=== PATIENT | male | born 1935 | race Caucasian/White ===

== ENCOUNTER 2024-12-20 14:36 | Inpatient (IN) | payer MEDICARE, BC, MEDICAID ==
[~2024-12-20] VITALS: Ht 180.3 cm; Wt 52.6 kg
[2024-12-20 15:25] LABS: BASOPHILS % (AUTO) 1.3 % (0.0-2.0); EOSINOPHILS % (AUTO) 0.4 % (1.0-6.0); HEMATOCRIT 40.5 % (41-53); HEMOGLOBIN 13.3 g/dL (13.5-17.5); LYMPHOCYTES # (AUTO) 2.2 K/uL (1.0-4.8); LYMPHOCYTES % (AUTO) 20.8 % (22.0-44.0); MEAN CORPUSCULAR HGB CONC 32.8 G/dL (31.0-37.0); MEAN CORPUSCULAR VOLUME 98 fL (80-100); MONOCYTES # (AUTO) 1.3 K/uL (0.1-1.0); MONOCYTES % (AUTO) 12.7 % (2.0-9.0); NEUTROPHILS # (AUTO) 6.8 K/uL (1.8-7.7); NEUTROPHILS % (AUTO) 64.8 % (40.0-70.0); PLATELET COUNT (AUTO) 379 K/uL (150-450); RED BLOOD CELL COUNT(AUTO) 4.14 MIL/uL (4.50-5.90); RED CELL DISTRIBUTION WIDTH 12.7 % (11.5-14.5); WHITE BLOOD COUNT (AUTO) 10.4 K/uL (4.5-11.0)
[2024-12-20 15:35] LABS: ANION GAP 12 mmol/L (8-16); CALCIUM, TOTAL 8.8 mg/dL (8.8-10.5); CARBON DIOXIDE 28 mmol/L (22-29); CHLORIDE 104 mmol/L (98-107); CREATININE 1.23 mg/dL (0.60-1.30); GLOMERULAR FILTR. RATE CALC 56 mL/min (>60); GLUCOSE,RANDOM 114 mg/dL (70-110); POTASSIUM 3.8 mmol/L (3.5-5.1); SODIUM SERUM 143 mmol/L (136-145); UREA NITROGEN, BLOOD 25 mg/dL (7-18)
[2024-12-20 15:43] LABS: COVID AG,FIA SOURCE NASAL SWAB
[2024-12-20 15:51] LABS: ALCOHOL, BLOOD (SERUM) < 3 mg/dL (0-10)
[2024-12-20 16:20] LABS: SARS-COV2 (COVID) ANTIGEN,FIA Negative (Negative)
[2024-12-20] MEDS ORDERED: ZOLPIDEM TARTRATE 10 MG TABLET PO PRN (20:00)
[2024-12-20 23:45] VITALS: BP 118/57; PULSE 75; RESP 19; TEMP 97.5; O2SAT 95
[2024-12-21] MEDS: SENNOSIDES 8.6 MG TABLET PO SCH (12:05)
[2024-12-21] MEDS: PROPRANOLOL HCL 10 MG TABLET PO SCH (12:05)
[2024-12-21] MEDS: DONEPEZIL HCL 10 MG TABLET PO SCH (12:06)
[2024-12-21] MEDS: TIOTROPIUM BROMIDE 18 MCG/INH HANDIHALER [5] IH SCH (12:06)
[2024-12-21] MEDS: FLUTICASONE FUROATE 100 MCG/INH INHALER [14] IH SCH (12:06)
[2024-12-21] MEDS: MEMANTINE HCL 10 MG TABLET PO SCH (12:06)
[2024-12-21] MEDS: GABAPENTIN 100 MG CAPSULE PO SCH (17:07)
[2024-12-21] MEDS: SERTRALINE HCL 50 MG TABLET PO SCH (17:24)
[2024-12-21 20:26] VITALS: BP 125/70; PULSE 66; RESP 18; TEMP 98; O2SAT 95
[2024-12-21] MEDS: TAMSULOSIN HCL 0.4 MG CAPSULE PO SCH (21:54)
[2024-12-21] MEDS: TraZODone HCL 100 MG TABLET PO SCH (21:54)
[2024-12-22] MEDS: RisperiDONE 0.5 MG TABLET PO SCH (08:42)
[2024-12-22 10:43] VITALS: BP 116/74; PULSE 98; RESP 18; TEMP 97.1; O2SAT 96
[2024-12-22 17:53] VITALS: BP 120/71; PULSE 98; RESP 18; TEMP 98; O2SAT 95
[2024-12-22 21:36] VITALS: BP 125/76; PULSE 86; RESP 18; TEMP 97.8; O2SAT 98
[2024-12-23 10:50] VITALS: BP 124/65; PULSE 73; RESP 18; TEMP 97.9; O2SAT 95
[2024-12-23 16:54] VITALS: BP 135/84; PULSE 106; RESP 18; O2SAT 98
[2024-12-23 21:02] VITALS: BP 116/69; PULSE 70; RESP 18; TEMP 97.6; O2SAT 93
[2024-12-24 09:52] VITALS: BP 150/88; PULSE 90; RESP 18; TEMP 96.8; O2SAT 98
[2024-12-24 16:34] VITALS: BP 114/60; PULSE 77
[2024-12-24 20:36] VITALS: BP 144/81; PULSE 72; RESP 17; TEMP 97.9; O2SAT 97
[2024-12-25 09:33] VITALS: BP 132/79; PULSE 96; RESP 18; TEMP 97.5; O2SAT 95
[2024-12-25 22:38] VITALS: BP 143/79; PULSE 106; RESP 18; TEMP 98.3; O2SAT 97
[2024-12-26 09:10] VITALS: RESP 17
[2024-12-26 20:34] VITALS: BP 99/57; PULSE 77; RESP 18; TEMP 97.7; O2SAT 95
[2024-12-26] MEDS: HALOPERIDOL 5 MG TABLET PO PRN (21:03)
[2024-12-27 08:25] VITALS: BP 127/63; PULSE 64; RESP 20; TEMP 98.5; O2SAT 96
[2024-12-27 20:35] VITALS: BP 123/66; PULSE 87; RESP 19; TEMP 97.5; O2SAT 96
[2024-12-28 09:31] VITALS: BP 136/60; PULSE 77; RESP 18; TEMP 97.5; O2SAT 96
[2024-12-28] MEDS ORDERED: GABA-1216 PO (14:50)
[2024-12-28] MEDS ORDERED: RISP0.5T80 PO (14:50)
[2024-12-28] MEDS ORDERED: TRAZ-257 PO (14:51)
[2024-12-28] MEDS ORDERED: SERT-158 PO (14:51)
== END 2024-12-28 17:06 | DRG 884 ==
LOC: EMS 14:36 → 3EX 22:58
PROVIDERS: ADMIT Psychiatry & Neurology Child & Adolescent Psychiatry; ATTEND Psychiatry & Neurology Child & Adolescent Psychiatry
PROC: GZ56ZZZ Individual Psychotherapy, Supportive (ICD-10-PCS; principal; 2024-12-21)
DX: F03.90 Unspecified dementia, unspecified severity, without behavioral disturbance, psychotic disturbance, mood disturbance, and anxiety (principal); R45.1 Restlessness and agitation; F25.9 Schizoaffective disorder, unspecified; J44.9 Chronic obstructive pulmonary disease, unspecified; Z20.822 Contact with and (suspected) exposure to COVID-19; G47.30 Sleep apnea, unspecified; I10 Essential (primary) hypertension
CPT/HCPCS: 80048; 85025; 87081; 99285; G0378; G0480